=== PATIENT | female | born 1990 | race Two or more races ===

== ENCOUNTER 2018-10-26 20:04 | Emergency (ER) | payer SELFPAY ==
[~2018-10-26] VITALS: Ht 167.6 cm; Wt 63.5 kg
[2018-10-26 20:15] VITALS: BP 149/90
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
[2018-10-26 20:41] LABS: BASOPHILS % (AUTO) 0.3 % (0.0-2.0); EOSINOPHILS % (AUTO) 0.7 % (0.0-3.0); HEMATOCRIT 39.2 % (37.0-47.0); HEMOGLOBIN 13.9 G/DL (12.0-16.0); MEAN CORPUSCULAR VOLUME 92 FL (80-99); MONOCYTES % (AUTO) 6.5 % (1.0-10.0); NEUTROPHILS % (AUTO) 44.6 % (45.0-75.0); PLATELET COUNT 359 K/UL (150-450); RED BLOOD COUNT 4.25 M/UL (4.20-5.40); RED CELL DISTRIBUTION WIDTH 11.1 % (11.6-14.8); WHITE BLOOD COUNT 11.7 K/UL (4.8-10.8)
[2018-10-26 20:42] LABS: ANION GAP 13 mmol/L (5-15); BLOOD UREA NITROGEN 7 mg/dL (7-18); CALCIUM 9.1 MG/DL (8.5-10.1); CARBON DIOXIDE 23 MMOL/L (21-32); CHLORIDE 106 MMOL/L (98-107); CREATININE 0.7 MG/DL (0.55-1.30); POTASSIUM 3.3 MMOL/L (3.5-5.1); SODIUM 142 MMOL/L (136-145)
[2018-10-26 20:47] LABS: ALANINE AMINOTRANSFERASE 16 U/L (12-78); ALBUMIN 4.4 G/DL (3.4-5.0); ALKALINE PHOSPHATASE 58 U/L (46-116); ASPARTATE AMINO TRANSFERASE 16 U/L (15-37); BILIRUBIN,TOTAL 0.4 MG/DL (0.2-1.0)
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
--- NOTE | 2018-10-26 21:30 | NUR ---
ER Nurse Note: Pt back from radiogy; awaiting results. Cleaned pt; applied new ice pack, all orders completed per ERMD. All safety measures met; will continue to montior.
[2018-10-26 22:04] VITALS: BP 133/88
--- NOTE | 2018-10-26 22:34 | NUR ---
ER Nurse Note: Pt asleep, no signs of distress, stable, VSS, RA. Pt not bleeding from nose; pt clean. Pt O2 >97% RA. Pt pending transfer. All safety measures met; will continue to monitor.
--- NOTE | 2018-10-26 22:53 | NUR ---
ER Nurse Note: Report given to CAMILA Longoria in [facility] for continuty of care. Pt is asleep but arousble, mumbled speech, a&ox3, VSS, no signs of resp distresss. Does not complain of pain. SLIV LT AC; patent. Pending transfer. All safety measures met; will continue to monitor.
[2018-10-26 23:40] VITALS: BP 128/82
--- NOTE | 2018-10-26 23:40 | NUR ---
ER Nurse Note: Transportation arrived. Pt left with all belongings.
== END 2018-10-26 23:40 | disposition short-term general hospital (02) ==
LOC: EDBD 20:04 → EMR 21:00
DX: S02.40CA Maxillary fracture, right side, initial encounter for closed fracture (principal); S02.81XA Fracture of other specified skull and facial bones, right side, initial encounter for closed fracture; R11.0 Nausea; Y04.8XXA Assault by other bodily force, initial encounter
CPT/HCPCS: 36415; 70450; 70486; 80053; 85025; 96374; 99285; G0480; J2405; 80329